=== PATIENT | female | born 1960 | race Caucasian/White ===

== ENCOUNTER 2019-08-01 16:07 | Emergency (ER) | payer MEDICAID ==
[~2019-08-01] VITALS: Ht 157.5 cm; Wt 77.6 kg
[2019-08-01 16:12] VITALS: Ht 157.5 cm; Wt 77.6 kg
[2019-08-01 20:50] VITALS: BP 180/86
== END 2019-08-01 20:50 | disposition home or self-care (01) ==
LOC: ED 16:07
DX: J20.9 Acute bronchitis, unspecified (principal); G89.29 Other chronic pain; I10 Essential (primary) hypertension; E11.9 Type 2 diabetes mellitus without complications; Z86.2 Personal history of diseases of the blood and blood-forming organs and certain disorders involving the immune mechanism
CPT/HCPCS: 82962; J1885